=== PATIENT | male | born 1945 | race Caucasian/White ===

== ENCOUNTER 2016-03-02 08:58 | Emergency (ER) | payer OTHER ==
[~2016-03-02] VITALS: Ht 172.7 cm; Wt 90.7 kg
[~2016-03-02 08:58] MED LIST: BACTROBAN OINT.15 GM TOP; NORCO 5-325 TA1 EACH PO
[2016-03-02 10:29] LABS: ABSOLUTE BASOPHIL COUNT 0 /CUMM (0.0-0.2); ABSOLUTE EOSINOPHIL COUNT 0.1 /CUMM (0.0-0.7); ABSOLUTE GRANULOCYTE CT 6.3 /CUMM (1.4-6.5); ABSOLUTE LYMPH COUNT 0.3 /CUMM (1.2-3.4); ABSOLUTE MONOCYTE COUNT 0.7 /CUMM (0.10-0.60); BASOPHIL % 0.2 % (0.0-2.0); GRANULOCYTE % 85.1 % (42.2-75.2); HEMATOCRIT 36.9 % (42-52); MEAN CORPUSCULAR HGB 29.1 PG (27.0-31.0); MEAN CORPUSCULAR HGB CONC 33.8 G/DL (33.0-37.0); MEAN CORPUSCULAR VOLUME 85.9 FL (80.0-94.0); MEAN PLATELET VOLUME 8.3 FL (7.4-10.4); PLATELET COUNT 184 /CUMM (130-400); RBC DISTRIBUTION WIDTH 14.1 % (11.5-14.5); WHITE BLOOD CELL COUNT 7.4 /CUMM (4.8-10.8)
--- NOTE | 2016-03-02 10:46 | RADIOLOGY REPORT ---
EXAMINATION: XR CHEST CLINICAL INFORMATION: Evaluate for pneumonia COMPARISON: None. TECHNIQUE: PA and lateral views of the chest were obtained. FINDINGS: The cardiac silhouette is enlarged. There are coils seen projecting over the left atrial region. The thoracic aorta appears tortuous. Hilar and mediastinal contours are otherwise unremarkable. There is a dense 7 mm left lower lobe nodule probably representing a granuloma. There is question of a right base nodule measuring 5 mm. The lungs are otherwise clear. There is no pleural effusion. There are degenerative changes of the spine. There are median sternotomy wires. IMPRESSION: Enlarged cardiac silhouette. Tortuous thoracic aorta. Pulmonary nodules. No evidence of pneumonia.
--- NOTE | 2016-03-02 10:52 | ED INFLUENZA/URI COMPLAINT ---
History of Present Illness General Chief Complaint: General Adult Stated Complaint: N/V DIZZINESS Source: patient, family Exam Limitations: no limitations Vital Signs & Intake/Output Vital Signs & Intake/Output Vital Signs Date Time Temp Pulse Resp B/P Pulse O2 O2 Flow FiO2 Ox Delivery Rate 03/02 1207 98.7 82 12 121/62 97 Room Air 03/02 1107 93 03/02 1019 100.9 03/02 0900 99.5 89 18 148/83 95 Room Air Allergies Coded Allergies: NO KNOWN ALLERGIES (11/03/11) Reconcile Medications Albuterol Sulfate 2.5 MG/3 ML (0.083 %) VIAL.NEB 1 Vial INH/CADEN Q4P PRN WHEEZING Prednisone 20 MG TABLET 1 TAB PO AD WHEEZING 3 TABS PO DAY 1-3 2 TABS PO DAY 4-6 1 TAB PO DAY 7-9 Triage Note: PT STATES HE HAS BEEN FEELING DIZZY AND HAS HX OF VERTIGO. PT STATES HE VOMITED IN THE PARKING LOT AND HAS NOT STRENGTH. Triage Nurses Notes Reviewed? yes HPI: 70-year-old male was not feeling well for the last 2 days had intermittent dizziness and chills, tactile fever cough congestion with green productive sputum and mild dyspnea on exertion. He has had poor appetite and generalized malaise. He has been on cefadroxil for the last 8 days for strep pharyngitis, he has 3 tablets left. His notes that he has been wheezing at nighttime. He has history of vertigo which is exacerbated by his current illness, felt dizzy earlier this morning and vomited 1. He denies any chest pain or any shortness of breath, denies any palpitations. (ALEJANDRA LONG) Past History Travel History Traveled to [place] past 21 day No Medical History Any Pertinent Medical History? see below for history Neurological: NONE Cardiovascular: hyperlipidemia Respiratory: asthma Gastrointestinal: diverticulitis Hepatic: NONE Renal: NONE Musculoskeletal: NONE Psychiatric: NONE Endocrine: NONE Blood Disorders: NONE Cancer(s): NONE SENIOR IT SPECIALIST/Reproductive: NONE Surgical History Surgical History: OPEN HEART L KNEE BACK Psychosocial History What is your primary language French Tobacco Use: Quit >30 days ago ETOH Use: occasional use Illicit Drug Use: denies illicit drug use Family History Hx Contributory? No (ALEJANDRA LONG) Review of Systems Review of Systems Constitutional: Reports: see HPI. EENTM: Reports: no symptoms. Respiratory: Reports: see HPI. Cardiovascular: Reports: see HPI. GI: Reports: no symptoms. Genitourinary: Reports: no symptoms. Musculoskeletal: Reports: no symptoms. Skin: Reports: no symptoms. Neurological/Psychological: Reports: no symptoms. Hematologic/Endocrine: Reports: no symptoms. Immunologic/Allergic: Reports: no symptoms. All Other Systems: Reviewed and Negative (ALEJANDRA LONG) Physical Exam Physical Exam General Appearance: well developed/nourished Ears, Nose, Throat: moist mucous membrane, nasal congestion, nasal drainage Comments: Well-developed well-nourished no apparent distress. HEENT: Atraumatic, extraocular motion intact Neck: Supple, no lymphadenopathy Back: Nontender Respiratory: No respiratory distress. Positive rhonchi bilateral mid to lower lungs, mild to moderate wheezing Heart: Regular rate rhythm no murmur Abdomen, soft nontender nondistended Extremities: No edema, full range of motion Neuro: Alert and oriented x3 Psych: Mood affect normal, normal memory normal judgment. Skin: Warm and dry, no rash on exposed skin Core Measures Severe Sepsis Present: No Septic Shock Present: No (ALEJANDRA LONG) Progress Differential Diagnosis: influenza, meningitis, neutropenia, otitis, pneumonia, pharyngitis, sinusitis Plan of Care: Orders Procedure Date/time Status LACTIC ACID 03/02 1235 Active Add-on Test (ER Only) 03/02 1047 Active TROPONIN LEVEL 03/02 1000 Complete Saline Lock 03/02 09 Active RAPID VIRAL INFLUENZA A 03/02 0935 Complete BLOOD CULTURE 03/02 0935 Active LACTIC ACID 03/02 0935 Complete COMPREHENSIVE METABOLIC PANEL 03/02 0935 Complete CBC WITHOUT DIFFERENTIAL 03/02 0935 Complete EKG 03/02 0935 Active Laboratory Tests 03/02/16 1000: Anion Gap 12, Estimated GFR > 60, BUN/Creatinine Ratio 11.3, Glucose 124 H, Lactic Acid 1.0, Calcium 9.6, Total Bilirubin 0.7, AST 23, ALT 44, Alkaline Phosphatase 66, Troponin I < 0.01, Total Protein 7.0, Albumin 4.1, Globulin 2.9, Albumin/Globulin Ratio 1.4, CBC w Diff MAN DIFF ORDERED, RBC 4.30 L, MCV 85.9, MCH 29.1, RDW 14.1, MPV 8.3, Gran % 85.1 H, Lymphocytes % 4.5 L, Monocytes % 9.2, Eosinophils % 1.0, Basophils % 0.2, Absolute Granulocytes 6.3, Segmented Neutrophils 80 H, Band Neutrophils 7 H, Absolute Lymphocytes 0.3 L, Lymphocytes 3 L, Monocytes 9, Absolute Monocytes 0.7 H, Eosinophils 1, Absolute Eosinophils 0.1, Absolute Basophils 0, Platelet Estimate VERIFIED BY SMEAR, Normocytic RBCs VERIFIED, Normochromic RBCs VERIFIED, PUBS MCHC 33.8 Microbiology 03/02 1053 BLOOD: Blood Culture - RECD 03/02 1000 BLOOD: Blood Culture - RECD Diagnostic Imaging: Viewed by Me: Radiology Read. Discussed w/RAD: Radiology Read. CXR Impression: PATIENT: ELLIOTT ZHU PRESENT AGE: 70 PATIENT ACCOUNT NO: [id number] : 44 LOCATION: [facility] ORDERING PHYSICIAN: ALEJANDRA GILMORE SERVICE DATE: 03/02/16 EXAM TYPE: RAD - XRY-CHEST XRAY, PA AND LATERAL EXAMINATION: XR CHEST CLINICAL INFORMATION: Evaluate for pneumonia COMPARISON: None. TECHNIQUE: PA and lateral views of the chest were obtained. FINDINGS: The cardiac silhouette is enlarged. There are coils seen projecting over the left atrial region. The thoracic aorta appears tortuous. Hilar and mediastinal contours are otherwise unremarkable. There is a dense 7 mm left lower lobe nodule probably representing a granuloma. There is question of a right base nodule measuring 5 mm. The lungs are otherwise clear. There is no pleural effusion. There are degenerative changes of the spine. There are median sternotomy wires. IMPRESSION: Enlarged cardiac silhouette. Tortuous thoracic aorta. Pulmonary nodules. No evidence of pneumonia. DICTATED BY: JAMES EMMANUEL MD DATE/TIME DICTATED:03/02/161036 CARBONIZER TESTER:VENECIA DATE/ TIME TRANSCRIBED:03/02/161036 Initial ED EKG: NSR, rate (80), ST depression (anterior lateral leads) Prior EKG: changed (st dep is worse than 2004) Rhythm Strip: normal sinus rhythm Comments: IV fluids given, 4 mg of IV Zofran, DuoNeb treatment given, and reevaluation patient is feeling much better. His workup is largely unremarkable, he does have mild bandemia however his chest x-ray is clear, his exam is most consistent with sinusitis/bronchitis especially with the nasal congestion, dizziness and wheezing and rhonchi. He had significant relief with the nebulizer treatment and he has been on antibiotics for the last 8+ days, Ceftin which should cover most community acquired pneumonias. He likely has developed a viral bronchitis, we'll place him on steroids, nebulizer treatments and recommend following up with primary care doctor or return here with worsening symptoms. Discussed with Dr. salazar (ALEJANDRA LONG) Departure Departure Disposition: HOME OR SELF CARE Condition: Stable Clinical Impression Primary Impression: Bronchitis Referrals: SHOBHA SOTO,KATHRYN THOMAS (PCP/Family) Referred to [facility] as new patient No Additional Instructions: Use the albuterol nebulizer for your shortness of breath wheezing and congestion Start taking prednisone as directed Use lsvo-nej-rokforo multisystem cold medication as needed. Motrin and Tylenol as needed for fever. Drink plenty of fluids. Return or follow-up with your doctor if not better in the next 3-5 days or if you're having continued worsening fevers, nausea, vomiting, shortness of breath, abdominal pain, difficulty swallowing or drinking or worsening flulike illness. Departure Forms: Customer Survey General Discharge Information Prescriptions: Current Visit Scripts Prednisone 1 TAB PO AD #18 TAB 3 TABS PO DAY 1-3 2 TABS PO DAY 4-6 1 TAB PO DAY 7-9 Albuterol Sulfate 1 Vial INH/CADEN Q4P PRN WHEEZING #50 Vial (ALEJANDRA LONG) PA/TRANSMISSION LINE ENGINEER Co-Sign Statement Statement: ED Attending supervision documentation- [X] I saw and evaluated the patient. I have also reviewed all the pertinent lab results and diagnostic results. I agree with the findings and the plan of care as documented in the PA's/TRANSMISSION LINE ENGINEER's documentation. [X] I have reviewed the ED Record and agree with the PA's/TRANSMISSION LINE ENGINEER's documentation. [] Additions or exceptions (if any) to the PAs/TRANSMISSION LINE ENGINEER's note and plan are summarized below: [] (JONATHAN SOTO,LUANN)
[2016-03-02 12:07] VITALS: BP 121/62
[2016-03-02] MEDS ORDERED: PREDNISONE20 M1 PO (12:21)
[2016-03-02] MEDS ORDERED: ALBUTEROL2.5 MG/3 M INH/SOL (12:21)
== END 2016-03-02 13:08 ==
LOC: ERH 08:58
PROVIDERS: Physician Assistant Surgical
DX: J40 Bronchitis, not specified as acute or chronic (principal); R42 Dizziness and giddiness; R05 Cough; Z87.891 Personal history of nicotine dependence
CPT/HCPCS: 1263; 87040; 87804; 87804-59; 93005; 93010; 96374; J2405

== ENCOUNTER 2017-03-13 14:03 | Inpatient (IN) | payer OTHER ==
[~2017-03-13] VITALS: Ht 172.7 cm; Wt 87.5 kg
[~2017-03-13 14:03] MED LIST changes: +ALBUTEROL2.5 MG/3 M INH/SOL; +PREDNISONE20 M1 PO
[2017-03-13] MEDS ORDERED: ACYCLOVIR800 M1 PO (14:28)
[2017-03-13] MEDS ORDERED: AMLODIPINE BESYL5 M1 PO (14:28)
[2017-03-13] MEDS ORDERED: ATORVASTATIN CA40 M1 PO (14:29)
[2017-03-13] MEDS ORDERED: OMEPRAZOLE40 M1 PO (14:30)
[2017-03-13] MEDS ORDERED: LEVOTHYROXINE200 MC1 PO (14:30)
[2017-03-13] MEDS ORDERED: PROAIR HFA8.5 GM INH (14:31)
[2017-03-13] MEDS ORDERED: MECLIZINE HCL25 MG PO (14:31)
[2017-03-13] MEDS ORDERED: DIAZEPAM5 M1 PO (14:32)
[2017-03-13] MEDS ORDERED: SYMBICORT 16010.2 GM INH (14:33)
[2017-03-13] MEDS ORDERED: ASPIRIN81 M4 PO (14:33)
--- NOTE | 2017-03-13 14:41 | ED GI/GU/ABDOMINAL COMPLAINT ---
History of Present Illness General Chief Complaint: Nausea, Vomiting, Diarrhea Stated Complaint: NVD Source: patient Exam Limitations: no limitations Vital Signs & Intake/Output Vital Signs & Intake/Output Vital Signs Date Time Temp Pulse Resp B/P B/P Pulse O2 O2 Flow FiO2 Mean Ox Delivery Rate 03/13 1928 98.9 91 19 138/91 98 Room Air 03/13 1856 Room Air 03/13 1723 99.8 88 19 148/82 97 Room Air 03/13 1428 Room Air 03/13 1412 100.5 93 18 155/95 96 Room Air Allergies Coded Allergies: NO KNOWN ALLERGIES (11/03/11) Triage Note: PT BIBA FROM HOME WITH C/O N/V/D THAT STARTED THIS AM. PER PT, HE WAS CONCERNED BECAUSE HIS WAS RECENTLY DC FROM [place] AFTER DX WITH "STOMACH PROBLEMS". PER PT, HE HAS BEEN UNABLE TO KEEP ANYTHING DOWN SINCE AWAKENING. ARRIVES A&O, VSS. DENIES SX BEYOND GI. Triage Nurses Notes Reviewed? yes Onset: Abrupt Duration: day(s): (2), constant, continues in ED Timing: recent history Location: generalized abdomen Radiation: no radiation No Modifying Factors: none HPI: 71-year-old male comes into the emergency room with complaints of dizziness nausea vomiting and diarrhea. Symptoms began yesterday and got progressively worse. Patient has been unable to keep any oral liquids down at home. He denies any chest pain or shortness of breath. Denies any blood in his stool. His was sick with similar symptoms. (Simone GILMORE,Andres) Reconcile Medications Acyclovir 800 MG TABLET 1 TAB PO DAILY SHINGLES (Reported) Albuterol Sulfate (Proair Hfa) 90 MCG HFA.AER.AD 2 PUF INH Q4-6 PRN PRN SHORTNESS OF BREATH (Reported) Amlodipine Besylate 5 MG TABLET 1 TAB PO DAILY CHOLESTEROL (Reported) Aspirin (Aspirin*) 81 MG TAB.CHEW 1 TAB PO DAILY HEART HEALTH (Reported) Budesonide/Formoterol Fumarate (Symbicort 160-4.5 Mcg Inhaler) 160 MCG-4.5 MCG/ ACTUATION HFA.AER.AD 2 PUF INH BID PRN SHORTNESS OF BREATH (Reported) Diazepam 5 MG TABLET 1 TAB PO BIDP PRN UNKNOWN (Reported) Levothyroxine Sodium 200 MCG TABLET 1 TAB PO DAILY AC THYROID (Reported) Meclizine HCl 25 MG TABLET 1 TAB PO TIDPRN PRN VERTIGO (Reported) Omeprazole 40 MG CAPSULE.DR 1 CAP PO DAILY GI (Reported) (Marian SOTO,Mike Gentile) Past History Travel History Traveled to [place] past 21 day No Medical History Any Pertinent Medical History? 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 No (Andres Fraser) Review of Systems Review of Systems Constitutional: Reports: see HPI. EENTM: Reports: no symptoms. Respiratory: Reports: no symptoms. Cardiovascular: Reports: see HPI. GI: Reports: see HPI. Genitourinary: Reports: no symptoms. Musculoskeletal: Reports: no symptoms. Skin: Reports: no symptoms. Neurological/Psychological: Reports: no symptoms. Hematologic/Endocrine: Reports: no symptoms. Immunologic/Allergic: Reports: no symptoms. All Other Systems: Reviewed and Negative (Andres Fraser) Physical Exam Physical Exam General Appearance: well developed/nourished, alert, awake, mild distress Head: atraumatic, normal appearance, active bleeding Eyes: Bilateral: normal appearance. Ears, Nose, Throat, Mouth: hearing grossly normal, moist mucous membrane Neck: normal inspection Respiratory: no respiratory distress Gastrointestinal: soft, non-tender, NO GUARDING, NO REBOUND TENDERNESS Back: normal inspection Extremities: normal range of motion Neurologic/Psych: awake, alert, oriented x 3 Skin: intact, normal color Core Measures ACS in differential dx? No Sepsis Present: No Sepsis Focused Exam Completed? No (Andres Fraser) Progress Differential Diagnosis: appendicitis, bowel obstruction, cholecystitis, diverticulitis, ischemic bowel, pancreatitis, PUD/GERD, SBO, UTI/pyelo Plan of Care: Orders Procedure Date/time Status Clear Liquid Diet 03/13 D Active LACTIC ACID 03/13 1716 Complete RAPID VIRAL INFLUENZA A 03/13 1442 Complete TROPONIN LEVEL 03/13 1416 Complete LIPASE 03/13 1416 Complete LACTIC ACID 03/13 1416 Complete COMPREHENSIVE METABOLIC PANEL 03/13 1416 Complete CBC WITHOUT DIFFERENTIAL 03/13 1416 Complete AMYLASE 03/13 1416 Complete EKG 03/13 1416 Active Laboratory Tests 03/13/17 1505: Anion Gap 16, Estimated GFR > 60, BUN/Creatinine Ratio 30.0 H, Glucose 126 H, Lactic Acid 2.6 H, Calcium 9.8, Total Bilirubin 0.7, AST 21, ALT 32, Alkaline Phosphatase 73, Troponin I < 0.01, Total Protein 7.3, Albumin 4.5, Globulin 2.8, Albumin/Globulin Ratio 1.6, Amylase 200 H, Lipase 529 H, CBC w Diff NO MAN DIFF REQ, RBC 5.11, MCV 88.0, MCH 29.6, RDW 13.8, MPV 8.8, Gran % 79.6 H, Lymphocytes % 7.8 L, Monocytes % 7.7, Eosinophils % 4.7, Basophils % 0.2, Absolute Granulocytes 7.3 H, Absolute Lymphocytes 0.7 L, Absolute Monocytes 0.7 H, Absolute Eosinophils 0.4, Absolute Basophils 0, PUBS MCHC 33.6 03/13/17 1024: Lactic Acid 1.9 Microbiology 03/13 1505 NASOPHARYN: Influenza Virus A & B Rapid Smear - COMP Diagnostic Imaging: Viewed by Me: CT Scan. Discussed w/RAD: CT Scan. Radiology Impression: PATIENT: ELLIOTT ZHU PRESENT AGE: 71 PATIENT ACCOUNT NO: [id number] : 44 LOCATION: [facility] ORDERING PHYSICIAN: Andres GILMORE SERVICE DATE: 03/13/17 EXAM TYPE : CAT - CT ABD & PELVIS W/O IV CONTRAS EXAMINATION: CT ABDOMEN AND PELVIS WITHOUT CONTRAST CLINICAL INFORMATION: Abdominal pain. Vomiting. COMPARISON: None TECHNIQUE: Multidetector volumetric imaging was performed from the superior aspect of the liver through the pubic symphysis. Sagittal and coronal reformatted images were obtained on the technologist's workstation. DLP: 442.91 mGy-cm FINDINGS: LUNG BASES: The visualized lung bases are unremarkable. Status post median sternotomy. LIVER, GALLBLADDER, AND BILIARY TREE: Multiple hepatic cysts. No suspicious liver lesions. No intrahepatic bile duct dilatation. The gallbladder is unremarkable with no evidence of radiopaque gallstones, gallbladder wall thickening, or obvious pericholecystic inflammatory changes. PANCREAS: Unremarkable. SPLEEN: There are a few small calcified granuloma within the spleen. ADRENAL GLANDS: Unremarkable. KIDNEYS AND URETERS: 1.6 cm cortical cyst lower pole left kidney. No renal or ureteral calculus. No hydronephrosis. BLADDER: Unremarkable. GASTROINTESTINAL TRACT: The small bowel loops are little prominent in size and fluid-filled but there is no transition point. No evidence for an obstructed bowel. There is diverticulosis of the colon. The diverticula are most numerous at the transverse colon and descending colon but seen throughout the colon. No acute change. No bowel wall thickening or edema. Moderate amount of scattered stool in the colon. The appendix is normal. ABDOMINAL WALL: No significant hernia is appreciated. LYMPH NODES: Normal. VASCULAR: Atherosclerotic vascular wall calcifications of aorta and iliac vessels without aneurysm. PELVIC VISCERA: Unremarkable. OSSEOUS STRUCTURES: Degenerative spondylosis spine with multilevel endplate spurring and facet joint arthrosis. IMPRESSION: No acute abnormality CT scan abdomen and pelvis. DICTATED BY: Thony Matthew MD DATE/TIME DICTATED:03/13/171842 FINANCIAL ASSISTANT:VENECIA DATE/TIME TRANSCRIBED:03/13/171842 CONFIDENTIAL, DO NOT COPY WITHOUT APPROPRIATE AUTHORIZATION. <Electronically signed in Other Vendor System> SIGNED BY: Thony Matthew MD 03/13/171851 Initial ED EKG: normal sinus rhythm, rate (82) (Andres Fraser) Departure Departure Disposition: STILL A PATIENT Condition: Stable Clinical Impression Primary Impression: Gastroenteritis Secondary Impressions: Dehydration, Dizziness, Elevated amylase and lipase Referrals: Charbel SOTO,Benigno Dunham (PCP/Family) Departure Forms: Customer Survey General Discharge Information Observation Note Spoke With: Alli SOTO,[facility] Physician Advisor Notified: MIKE NEWBY DO Place Patient In: Non-ED OBS Care Area Rationale for Observation: My rational for observation is as follows . Patient will require gentle IV hydration. IV in time medics. Repeat labs. Patient is still symptomatic despite fluids and nausea meds. He feels dizzy. Medically not safe for discharge. (Andres Fraser) PA/DATASTAGE DEVELOPER Co-Sign Statement Statement: ED Attending supervision documentation- [X] I saw and evaluated the patient. I have also reviewed all the pertinent lab results and diagnostic results. I agree with the findings and the plan of care as documented in the PA's/DATASTAGE DEVELOPER's documentation. Patient presents for evaluation of vomiting. Patient's has been ill with similar symptoms recently. Physical examination reveals somewhat tired-appearing gentleman with a benign abdominal examination. [] I have reviewed the ED Record and agree with the PA's/DATASTAGE DEVELOPER's documentation. [] Additions or exceptions (if any) to the PAs/DATASTAGE DEVELOPER's note and plan are summarized below: [] (Marian SOTO,Mike Gentile)
[2017-03-13 15:18] LABS: ABSOLUTE BASOPHIL COUNT 0 /CUMM (0.0-0.2); ABSOLUTE EOSINOPHIL COUNT 0.4 /CUMM (0.0-0.7); ABSOLUTE GRANULOCYTE CT 7.3 /CUMM (1.4-6.5); ABSOLUTE LYMPH COUNT 0.7 /CUMM (1.2-3.4); ABSOLUTE MONOCYTE COUNT 0.7 /CUMM (0.10-0.60); BASOPHIL % 0.2 % (0.0-2.0); EOSINOPHIL % 4.7 % (0-5); GRANULOCYTE % 79.6 % (42.2-75.2); MEAN CORPUSCULAR HGB 29.6 PG (27.0-31.0); MEAN CORPUSCULAR HGB CONC 33.6 G/DL (33.0-37.0); MEAN PLATELET VOLUME 8.8 FL (7.4-10.4); PLATELET COUNT 259 /CUMM (130-400); RBC DISTRIBUTION WIDTH 13.8 % (11.5-14.5); RED BLOOD CELL CT 5.11 /CUMM (4.70-6.10); WHITE BLOOD CELL COUNT 9.2 /CUMM (4.8-10.8)
--- NOTE | 2017-03-13 18:52 | CT SCAN REPORT ---
EXAMINATION: CT ABDOMEN AND PELVIS WITHOUT CONTRAST CLINICAL INFORMATION: Abdominal pain. Vomiting. COMPARISON: None TECHNIQUE: Multidetector volumetric imaging was performed from the superior aspect of the liver through the pubic symphysis. Sagittal and coronal reformatted images were obtained on the technologist's workstation. DLP: 442.91 mGy-cm FINDINGS: LUNG BASES: The visualized lung bases are unremarkable. Status post median sternotomy. LIVER, GALLBLADDER, AND BILIARY TREE: Multiple hepatic cysts. No suspicious liver lesions. No intrahepatic bile duct dilatation. The gallbladder is unremarkable with no evidence of radiopaque gallstones, gallbladder wall thickening, or obvious pericholecystic inflammatory changes. PANCREAS: Unremarkable. SPLEEN: There are a few small calcified granuloma within the spleen. ADRENAL GLANDS: Unremarkable. KIDNEYS AND URETERS: 1.6 cm cortical cyst lower pole left kidney. No renal or ureteral calculus. No hydronephrosis. BLADDER: Unremarkable. GASTROINTESTINAL TRACT: The small bowel loops are little prominent in size and fluid-filled but there is no transition point. No evidence for an obstructed bowel. There is diverticulosis of the colon. The diverticula are most numerous at the transverse colon and descending colon but seen throughout the colon. No acute change. No bowel wall thickening or edema. Moderate amount of scattered stool in the colon. The appendix is normal. ABDOMINAL WALL: No significant hernia is appreciated. LYMPH NODES: Normal. VASCULAR: Atherosclerotic vascular wall calcifications of aorta and iliac vessels without aneurysm. PELVIC VISCERA: Unremarkable. OSSEOUS STRUCTURES: Degenerative spondylosis spine with multilevel endplate spurring and facet joint arthrosis. IMPRESSION: No acute abnormality CT scan abdomen and pelvis.
--- NOTE | 2017-03-13 19:27 | History & Physical ---
Sara Lam 03/13/171925: General Information and HPI MD Statement: I have seen and personally examined ELLIOTT NEAL and documented this H&P. The patient is a 71 year old M who presented with a patient stated chief complaint of [Nausea vomiting diarrhea]. Source of Information: patient Exam Limitations: no limitations History of Present Illness: Mr. 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 Per patient, he went to a restaurant for dinner last night with pasta and cheese, and later felt generalized discomfort overnight. This morning, he ate some oatmeal and then started vomiting + diarrhea > 10 times, non-bloody diarrhea and vomitus. Patient tried to drink some gatorade but could not tolerate oral intake. He did not know if whoever had the dinner with him was sick or not. Patient denied any chest pain/SOB/Palpitation/urinary abnormality, or other skin /musculoskeletal/neurological disorders. Patient felt better during our clinical interactions and was able to drink some apple juice and had no new N/V/D prior we came in to the ER. Allergies/Medications Allergies: Coded Allergies: NO KNOWN ALLERGIES (11/03/11) Home Med list Acyclovir 800 MG TABLET 1 TAB PO DAILY SHINGLES (Reported) Albuterol Sulfate (Proair Hfa) 90 MCG HFA.AER.AD 2 PUF INH Q4-6 PRN PRN SHORTNESS OF BREATH (Reported) Amlodipine Besylate 5 MG TABLET 1 TAB PO DAILY CHOLESTEROL (Reported) Aspirin (Aspirin*) 81 MG TAB.CHEW 1 TAB PO DAILY HEART HEALTH (Reported) Atorvastatin Calcium 40 MG TABLET 1 TAB PO QPM CHOLESTEROL (Reported) Budesonide/Formoterol Fumarate (Symbicort 160-4.5 Mcg Inhaler) 160 MCG-4.5 MCG/ ACTUATION HFA.AER.AD 2 PUF INH BID PRN SHORTNESS OF BREATH (Reported) Diazepam 5 MG TABLET 1 TAB PO BIDP PRN UNKNOWN (Reported) Levothyroxine Sodium 200 MCG TABLET 1 TAB PO DAILY AC THYROID (Reported) Meclizine HCl 25 MG TABLET 1 TAB PO TIDPRN PRN VERTIGO (Reported) Omeprazole 40 MG CAPSULE. 1 CAP PO DAILY GI (Reported) Past History Travel History Traveled to [place] past 21 day No Medical History Neurological: vertigo Cardiovascular: hyperlipidemia Respiratory: asthma Gastrointestinal: diverticulitis Hepatic: NONE Renal: NONE Musculoskeletal: NONE Psychiatric: NONE Endocrine: NONE Blood Disorders: NONE Cancer(s): NONE CLINICAL PARTNER/Reproductive: NONE Surgical History Surgical History: OPEN HEART L KNEE BACK Past Family/Social History Psychosocial History Smoking Status: Former Smoker ETOH Use: occasional use Illicit Drug Use: denies illicit drug use Review of Systems Review of Systems Constitutional: Reports: see HPI. Exam & Diagnostic Data Last 24 Hrs of Vital Signs/I&O Vital Signs Date Time Temp Pulse Resp B/P B/P Pulse O2 O2 Flow FiO2 Mean Ox Delivery Rate 03/13 2143 98.4 83 19 130/80 97 Room Air 03/13 2030 97.0 86 16 127/71 96 Room Air 03/13 1928 98.9 91 19 138/91 98 Room Air 03/13 1856 Room Air 03/13 1723 99.8 88 19 148/82 97 Room Air 03/13 1428 Room Air 03/13 1412 100.5 93 18 155/95 96 Room Air Intake & Output 03/14 0800 03/14 0000 03/13 1600 Intake Total 1000 Output Total Balance 1000 Intake, IV 1000 Patient 87.543 kg Weight Physical Exam General Appearance Alert, Oriented X3, Cooperative, No Acute Distress Skin No Breakdown, No Significant Lesion Skin Temp/Moisture Exam: Warm/Dry HEENT Atraumatic, PERRLA Neck Supple Cardiovascular Regular Rate Lungs Clear to Auscultation, Normal Air Movement Abdomen Normal Bowel Sounds, Soft, No Tenderness Neurological Normal Speech, Strength at 5/5 X4 Ext Extremities No Edema, Normal Pulses Last 24 Hrs of Labs/Alberto: Laboratory Tests 03/13/17 1505: Anion Gap 16, Estimated GFR > 60, BUN/Creatinine Ratio 30.0 H, Glucose 126 H, Lactic Acid 2.6 H, Calcium 9.8, Total Bilirubin 0.7, AST 21, ALT 32, Alkaline Phosphatase 73, Troponin I < 0.01, Total Protein 7.3, Albumin 4.5, Globulin 2.8, Albumin/Globulin Ratio 1.6, Amylase 200 H, Lipase 529 H, CBC w Diff NO MAN DIFF REQ, RBC 5.11, MCV 88.0, MCH 29.6, RDW 13.8, MPV 8.8, Gran % 79.6 H, Lymphocytes % 7.8 L, Monocytes % 7.7, Eosinophils % 4.7, Basophils % 0.2, Absolute Granulocytes 7.3 H, Absolute Lymphocytes 0.7 L, Absolute Monocytes 0.7 H, Absolute Eosinophils 0.4, Absolute Basophils 0, PUBS MCHC 33.6 03/13/17 1024: Lactic Acid 1.9 Microbiology 03/13 1505 NASOPHARYN: Influenza Virus A & B Rapid Smear - COMP Assessment/Plan Assessment: Mr. 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 Per patient, he went to a restaurant for dinner last night with pasta and cheese, and later felt generalized discomfort overnight. This morning, he ate some oatmeal and then started vomiting + diarrhea > 10 times, non-bloody diarrhea and vomitus. Patient tried to drink some gatorade but could not tolerate oral intake. Patient denied any chest pain/SOB/Palpitation/urinary abnormality, or other skin /musculoskeletal/neurological disorders. ER Course: Vital signs stable, afebrile, BP 130/80, 97%RA Labs/imaging/EKG/interventions -CBC: WNL unremarkable -BMP: Electrolytes unremarkable, Glucose 126, Lactic Acid 2.6, Amylase/Lipase 200/529 -Ab CT revealed no acute abnormality CT scan abdomen and pelvis. -EKG: Normal sinus rhythm without significant ST-T abnormalities. -Interventions in ER:Zofran + Protonix Assessment: Mr. 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 As patient remained afebrile without leukocytosis, and watery diarrhea without blood, and self- resolving symptoms within 24hours, patient's clinical picture resembled viral gastroenteritis unless proven otherwise. Patient did not appear to be dehydrated on PE or on lab. patient denied any PMH of pancreatitis. Problem list #N/V/D 2/2 viral gastroenteritis #Elevated Amylase/Lipase, reactive? #Hx of vertigo on Meclizine PRN, HTN, HLD, Asthma Plan - Placed to Gen med Observation - As patient tolerated liquids, will not start IV fluids - Zofran PRN for any N/V, IV protonix -> PO in the AM - Continued home meds of Amlodipine 5mg daily, acyclovir, levothyroxine, meclizine, symbicort/proair and aspirin - Monitor BEP in the AM. If asymptomatic, could discharge home. - Advance diet as tolerated. DVT prophylaxis Lovenox + ALPS Clear Liquid Full Code As Ranked By This Provider Problem List: 1. Dehydration 2. Elevated amylase and lipase 3. Gastroenteritis 4. Dizziness Core Measures/Misc (11/16) Acute Coronary Syndrome ACS Diagnosis: No Congestive Heart Failure Congestive Heart Failure Diagnosis No Cerebrovascular Accident CVA/TIA Diagnosis: No VTE (View Protocol) VTE Risk Factors Age>40 No Mechanical VTE Prophylaxis d/t N/A MechProphylax Ordered No VTE Pharm Prophylaxis d/t NA PharmProphylax ordered Sepsis (View protocol) Sepsis Present: No [place] 03/14/17 0332: Resident Review Statement Resident Statement: examined this patient, discussed with creative services intern, agreed with creative services intern, discussed with family, reviewed EMR data (avail), discussed with nursing , discussed with case mgmt, reviewed images, amended to note Alli SOTO, [facility] 03/14/17 0545: Attending MD Review Statement Attending Statement Attending MD Statement: examined this patient, discuss w/resident/PA/CHAIRMAN & CHIEF EXECUTIVE OFFICER, agreed w/resident/PA/CHAIRMAN & CHIEF EXECUTIVE OFFICER, discussed with family, reviewed images, amended to note Attending Assessment/Plan: 71 yo M with h/o vertigo, HTN, rosacea, herpes zoster, asthma, diverticulitis s/ p partial colectomy, 'irregular heart beat' and open heart surgery for an extra coronary artery, is brought in for evaluation of 1 day h/o acute onset of nausea , vomiting and nonbloody diarrhea after eating 'veal parmesan' at a post- dinner the night prior. He feels weak and is unable to keep anything down. C/o indigestion. He denies abdominal pain or cramps, no fever or chills. He had more than 10 episodes of vomiting and diarrhea at home. He was concerned as his was recently discharged after being treated for gastroenteritis. Vitals: Tmax 100.5, HR 90's, BP 130/80, sats 97% RA. Exam: AAO, weak but not lethargic, ill-appearing, dry mucous membranes, Neck supple, Chest clear, Heart S1S2 regular, systolic murmur+, Abd soft, NT, BS+, LE : no edema. Labs: no leukocytosis, BUN 21, elevated BUN/ creat ratio, lactic acid 2.6, trop neg, lipase 529. CT abd/pelvis: no acute abnormality. EKG: SR, diffuse TWI in inferior leads and V3-6 (old), no acute changes. Assessment and plan: 1. Nausea, vomiting, diarrhea likely viral gastroenteritis 2. Poor oral intake 3. Dehydration with elevated BUN/ creatinine ratio 4. Elevated lactic acid 5. Elevated amylase/ lipase is likely reactive from gastroenteritis - 23 hour observation on general medicine - Gentle IV hydration - IV PPI --> PO in AM - Anti emetics as needed - Clear liquid diet, advance as tolerated - If persistent diarrhea, consider stool studies - Recheck BEP in AM, trend lactic acid - Resume home meds amlodipine, acyclovir, levothyroxine, meclizine, symbicort, proair and aspirin. - Patient is on atorvastatin but has not been taking it due to muscle cramps. - If his symptoms improve and diarrhea resolves, will advance diet in AM, and if he tolerates can plan to discharge. DVT ppx Lovenox. Full code. Observation Initial Note - I have personally examined ELLIOTT NEAL on 03/14/17 at 0545. The disposition of ELLIOTT NEAL is uncertain at this time and before a determination can be made, he requires a period of observation for the following reasons [viral gastroenteritis]
[2017-03-13 21:43] VITALS: BP 130/80
[2017-03-14 06:20] VITALS: BP 114/70
--- NOTE | 2017-03-14 06:22 | PN- Housestaff ---
See Addendum Subjective Follow-up For: #N/V/D 2/2 viral gastroenteritis #Elevated Amylase/Lipase, reactive? #Hx of vertigo on Meclizine PRN, HTN, HLD, Asthma Subjective: No overnight event. Patient was awake and felt much improved overall this morning. Review of Systems Constitutional: Reports: see HPI. Objective Last 24 Hrs of Vital Signs/I&O Vital Signs Date Time Temp Pulse Resp B/P B/P Pulse O2 O2 Flow FiO2 Mean Ox Delivery Rate 03/13 2143 98.4 83 19 130/80 97 Room Air 03/13 2030 97.0 86 16 127/71 96 Room Air 03/13 1928 98.9 91 19 138/91 98 Room Air 03/13 1856 Room Air 03/13 1723 99.8 88 19 148/82 97 Room Air 03/13 1428 Room Air 03/13 1412 100.5 93 18 155/95 96 Room Air Intake & Output 03/14 0800 03/14 0000 03/13 1600 Intake Total 1000 Output Total Balance 1000 Intake, IV 1000 Patient 87.543 kg Weight Physical Exam General Appearance: Alert, Oriented X3, Cooperative, No Acute Distress Abdomen: Normal Bowel Sounds, Soft, No Tenderness Current Medications: Current Medications Sig/Mary Ann Start time Last Medication Dose Route Stop Time Status Admin Acetaminophen 650 MG Q6P PRN 03/13 2100 AC PO Acetaminophen 1,000 MG Q6P PRN 03/13 2100 AC IV Amlodipine Besylate 5 MG DAILY 03/14 1000 AC PO Enoxaparin Sodium 40 MG DAILY 03/14 1000 AC SC Ondansetron HCl 4 MG Q8P PRN 03/13 2100 AC IV Ondansetron HCl 0 .STK-MED ONE 03/13 1653 DC .ROUTE Ondansetron HCl 4 MG ONCE ONE 03/13 1645 DC 03/13 IV 03/13 1646 1650 Ondansetron HCl 4 MG ONCE ONE 03/13 1445 DC 03/13 IV 03/13 1446 1439 Ondansetron HCl 0 .STK-MED ONE 03/13 1422 DC .ROUTE Pantoprazole Sodium 0 .STK-MED ONE 03/13 1946 DC IV Pantoprazole Sodium 40 MG ONCE ONE 03/13 1945 DC 03/13 IV 03/13 1945 194 Sodium Chloride 1,000 ML Q13H 03/14 0545 AC 03/14 IV 0556 Last 24 Hrs of Lab/Alberto Results Last 24 Hrs of Labs/Mics: Laboratory Tests 03/13/17 1505: Anion Gap 16, Estimated GFR > 60, BUN/Creatinine Ratio 30.0 H, Glucose 126 H, Lactic Acid 2.6 H, Calcium 9.8, Total Bilirubin 0.7, AST 21, ALT 32, Alkaline Phosphatase 73, Troponin I < 0.01, Total Protein 7.3, Albumin 4.5, Globulin 2.8, Albumin/Globulin Ratio 1.6, Amylase 200 H, Lipase 529 H, CBC w Diff NO MAN DIFF REQ, RBC 5.11, MCV 88.0, MCH 29.6, RDW 13.8, MPV 8.8, Gran % 79.6 H, Lymphocytes % 7.8 L, Monocytes % 7.7, Eosinophils % 4.7, Basophils % 0.2, Absolute Granulocytes 7.3 H, Absolute Lymphocytes 0.7 L, Absolute Monocytes 0.7 H, Absolute Eosinophils 0.4, Absolute Basophils 0, PUBS MCHC 33.6 03/13/17 1024: Lactic Acid 1.9 Microbiology 03/13 1505 NASOPHARYN: Influenza Virus A & B Rapid Smear - COMP Assessment/Plan Assessment: Mr. 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 Per patient, he went to a restaurant for dinner last night with pasta and cheese, and later felt generalized discomfort overnight. This morning, he ate some oatmeal and then started vomiting + diarrhea > 10 times, non-bloody diarrhea and vomitus. Patient tried to drink some gatorade but could not tolerate oral intake. Patient denied any chest pain/SOB/Palpitation/urinary abnormality, or other skin /musculoskeletal/neurological disorders. ER Course: Vital signs stable, afebrile, BP 130/80, 97%RA Labs/imaging/EKG/interventions -CBC: WNL unremarkable -BMP: Electrolytes unremarkable, Glucose 126, Lactic Acid 2.6, Amylase/Lipase 200/529 -Ab CT revealed no acute abnormality CT scan abdomen and pelvis. -EKG: Normal sinus rhythm without significant ST-T abnormalities. -Interventions in ER:Zofran + Protonix Assessment: Mr. 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 As patient remained afebrile without leukocytosis, and watery diarrhea without blood, and self- resolving symptoms within 24hours, patient's clinical picture resembled viral gastroenteritis unless proven otherwise. Patient did not appear to be dehydrated on PE or on lab. patient denied any PMH of pancreatitis. Problem list #N/V/D 2/2 viral gastroenteritis #Elevated Amylase/Lipase, reactive? #Lactic Acidosis #Hx of vertigo on Meclizine PRN, HTN, HLD, Asthma Plan - As patient tolerated liquids, will not start IV fluids. Advance diet as tolerated. - Lactic acid on admission 1.9, trended up to 2.6 on latest lab. Continue monitor - Zofran PRN for any N/V, IV protonix -> PO in the AM - Continued home meds of Amlodipine, acyclovir, levothyroxine, meclizine, symbicort/proair and aspirin. - Monitor BEP in the AM. If asymptomatic, could discharge home. - Advance diet as tolerated. DVT prophylaxis Lovenox + ALPS Clear Liquid Full Code Problem List: 1. Dehydration 2. Dizziness 3. Elevated amylase and lipase 4. Gastroenteritis Pain Ratin Pain Location: NA Pain Goal: Remain pain free Pain Plan: NA Tomorrow's Labs & Rationales: NA
[2017-03-14 14:07] LABS: ABSOLUTE BASOPHIL COUNT 0 /CUMM (0.0-0.2); ABSOLUTE EOSINOPHIL COUNT 0.4 /CUMM (0.0-0.7); ABSOLUTE LYMPH COUNT 1.1 /CUMM (1.2-3.4); ABSOLUTE MONOCYTE COUNT 0.8 /CUMM (0.10-0.60); BASOPHIL % 0.2 % (0.0-2.0); EOSINOPHIL % 5.5 % (0-5); GRANULOCYTE % 68.6 % (42.2-75.2); HEMATOCRIT 40.9 % (42-52); MEAN CORPUSCULAR HGB 29.1 PG (27.0-31.0); MEAN CORPUSCULAR VOLUME 88.3 FL (80.0-94.0); MEAN PLATELET VOLUME 9.1 FL (7.4-10.4); PLATELET COUNT 213 /CUMM (130-400); RBC DISTRIBUTION WIDTH 13.8 % (11.5-14.5); RED BLOOD CELL CT 4.63 /CUMM (4.70-6.10); WHITE BLOOD CELL COUNT 7.3 /CUMM (4.8-10.8)
[2017-03-14 14:41] VITALS: BP 120/70
[2017-03-14 22:36] VITALS: BP 112/70
[2017-03-15 06:55] VITALS: BP 130/70
--- NOTE | 2017-03-15 08:35 | PN- Att Addend ---
Attending Addendum Attending Brief Note Patient seen and examined. Resting comfortably and not in acute distress. Apparently yesterday after advancing his diet he vomited on 2 occasions. He has 3 bowel movements yesterday which he described as loose not watery. Denies presence of any blood. Denies abdominal pain. Vital Signs Date Time Temp Pulse Resp B/P B/P Pulse O2 O2 Flow FiO2 Mean Ox Delivery Rate 03/15 0655 97.6 64 20 130/70 94 Room Air 03/14 2236 98.7 84 20 112/70 94 Room Air 03/14 1441 97.9 72 20 120/70 98 03/14 0926 61 114/70 Gen. appearance: Well-developed, not in any distress. Heart: S1-S2 regular Lungs: Clear bilaterally Abdomen: Soft, nontender with normal bowel sounds. No distention. No right upper quadrant tenderness. Extremities: No pedal edema Skin: Intact with no rashes. Laboratory Tests 03/14/17 1245: Lactic Acid 1.7, CBC w Diff NO MAN DIFF REQ, RBC 4.63 L, MCV 88.3, MCH 29.1, RDW 13.8, MPV 9.1, Gran % 68.6, Lymphocytes % 14.5 L, Monocytes % 11.2 H, Eosinophils % 5.5 H, Basophils % 0.2, Absolute Granulocytes 5.0, Absolute Lymphocytes 1.1 L, Absolute Monocytes 0.8 H, Absolute Eosinophils 0.4, Absolute Basophils 0, PUBS MCHC 33.0 03/14/17 0853: Anion Gap 18 H, Estimated GFR > 60, BUN/Creatinine Ratio 20.0, Amylase 70, Lipase 37 LFTs are within normal limits. Amylase/lipase ratio are within normal limits. Problems: 1. Gastroenteritis; resolved. Likely viral in etiology. 2. Elevated amylase lipase; resolved. Pancreas appears unremarkable on CT abdomen. Probably reactive. 3. Low-grade fever; no leukocytosis on presentation. Remains afebrile for now. Plan: -Diet was downgraded again yesterday. Continue full liquid diet for now. If patient tolerates consider advancing later on today. -If diarrhea persists send stool for Clostridium difficile, cryptosporidium, Giardia and stool culture. -Mobilize patient as tolerated. -Due to his ongoing vomiting discharge will be held and patient converted to inpatient level of care For further monitoring.
[2017-03-15 09:33] LABS: ABSOLUTE BASOPHIL COUNT 0 /CUMM (0.0-0.2); ABSOLUTE EOSINOPHIL COUNT 0.3 /CUMM (0.0-0.7); ABSOLUTE GRANULOCYTE CT 4.4 /CUMM (1.4-6.5); ABSOLUTE LYMPH COUNT 1.1 /CUMM (1.2-3.4); ABSOLUTE MONOCYTE COUNT 0.8 /CUMM (0.10-0.60); BASOPHIL % 0.2 % (0.0-2.0); GRANULOCYTE % 65.3 % (42.2-75.2); HEMATOCRIT 37.1 % (42-52); MEAN CORPUSCULAR HGB 29.8 PG (27.0-31.0); MEAN CORPUSCULAR HGB CONC 33.9 G/DL (33.0-37.0); MEAN CORPUSCULAR VOLUME 87.9 FL (80.0-94.0); MEAN PLATELET VOLUME 8.5 FL (7.4-10.4); PLATELET COUNT 226 /CUMM (130-400); RBC DISTRIBUTION WIDTH 13.4 % (11.5-14.5); RED BLOOD CELL CT 4.22 /CUMM (4.70-6.10); WHITE BLOOD CELL COUNT 6.7 /CUMM (4.8-10.8)
[2017-03-15 15:46] VITALS: BP 110/70
[2017-03-15 22:44] VITALS: BP 102/60
[2017-03-16 06:30] VITALS: BP 122/76
--- NOTE | 2017-03-16 08:20 | PN- Housestaff ---
Sara Lam 03/16/17 0818: Subjective Follow-up For: #N/V/D 2/2 viral gastroenteritis #Elevated Amylase/Lipase, resolving #Hx of vertigo on Meclizine PRN, HTN, HLD, Asthma Subjective: No overnight event. Pt felt improved and was eating his breakfast including scrambled eggs and toasts. Denied bowel movements or other specific complaint. Review of Systems Constitutional: Reports: see HPI. Objective Last 24 Hrs of Vital Signs/I&O Vital Signs Date Time Temp Pulse Resp B/P B/P Pulse O2 O2 Flow FiO2 Mean Ox Delivery Rate 03/16 0630 98.0 59 20 122/76 96 Room Air 03/15 2244 97.8 60 20 102/60 97 Room Air 03/15 1546 97.9 66 20 110/70 97 03/15 0844 64 130/70 Intake & Output 03/16 1600 03/16 0800 03/16 0000 Intake Total 400 480 Output Total Balance 400 480 Intake, Oral 400 480 Physical Exam General Appearance: Alert, Oriented X3, Cooperative, No Acute Distress Cardiovascular: Regular Rate Lungs: Clear to Auscultation, Normal Air Movement Abdomen: Normal Bowel Sounds, Soft, No Tenderness Neurological: Normal Speech Extremities: No Edema, Normal Pulses Current Medications: Current Medications Sig/Mary Ann Start time Last Medication Dose Route Stop Time Status Admin Acetaminophen 650 MG Q6P PRN 03/13 2100 AC PO Acetaminophen 1,000 MG Q6P PRN 03/13 2100 AC IV Amlodipine Besylate 5 MG DAILY 03/14 1000 AC 03/15 PO 0844 Diazepam 5 MG BID PRN 03/14 1000 AC PO Enoxaparin Sodium 40 MG DAILY 03/14 1000 AC 03/15 SC 0844 Levothyroxine Sodium 0.2 MG DAILY AC 03/14 0700 AC 03/16 PO 0526 Meclizine HCl 25 MG DAILY PRN 03/14 0645 AC PO Omeprazole 40 MG DAILY AC 03/14 0700 AC 03/16 PO 0526 Ondansetron HCl 4 MG Q8P PRN 03/13 2100 AC 03/14 IV 1848 Last 24 Hrs of Lab/Alberto Results Last 24 Hrs of Labs/Mics: Laboratory Tests 03/15/17 0820: Anion Gap 13, Estimated GFR > 60, BUN/Creatinine Ratio 14.3, CBC w Diff NO MAN DIFF REQ, RBC 4.22 L, MCV 87.9, MCH 29.8, RDW 13.4, MPV 8.5, Gran % 65.3, Lymphocytes % 17.0 L, Monocytes % 12.5 H, Eosinophils % 5.0, Basophils % 0.2, Absolute Granulocytes 4.4, Absolute Lymphocytes 1.1 L, Absolute Monocytes 0.8 H, Absolute Eosinophils 0.3, Absolute Basophils 0, PUBS MCHC 33.9 Assessment/Plan Assessment: Mr. 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 Per patient, he went to a restaurant for dinner last night with pasta and cheese, and later felt generalized discomfort overnight. This morning, he ate some oatmeal and then started vomiting + diarrhea > 10 times, non-bloody diarrhea and vomitus. Patient tried to drink some gatorade but could not tolerate oral intake. Patient denied any chest pain/SOB/Palpitation/urinary abnormality, or other skin /musculoskeletal/neurological disorders. ER Course: Vital signs stable, afebrile, BP 130/80, 97%RA Labs/imaging/EKG/interventions -CBC: WNL unremarkable -BMP: Electrolytes unremarkable, Glucose 126, Lactic Acid 2.6, Amylase/Lipase 200/529 -Ab CT revealed no acute abnormality CT scan abdomen and pelvis. -EKG: Normal sinus rhythm without significant ST-T abnormalities. -Interventions in ER:Zofran + Protonix Assessment: Mr. 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 As patient remained afebrile without leukocytosis, and watery diarrhea without blood, and self- resolving symptoms within 24hours, patient's clinical picture resembled viral gastroenteritis unless proven otherwise. Patient did not appear to be dehydrated on PE or on lab. patient denied any PMH of pancreatitis. Problem list #N/V/D 2/2 viral gastroenteritis #Elevated Amylase/Lipase, reactive? #Lactic Acidosis #Hx of vertigo on Meclizine PRN, HTN, HLD, Asthma Plan - Patient's diet advanced to regular diet at lunch without any N/V episodes. pending discharge today. - Lactic acid on admission 1.9, trended up to 2.6 on latest lab. Continue monitor - Zofran PRN for any N/V, IV protonix -> PO in the AM - Continued home meds of Amlodipine, acyclovir, levothyroxine, meclizine, symbicort/proair and aspirin. Patient's off lipitor since he got leg cramp from it. DVT prophylaxis Lovenox + ALPS Regular diet Full Code Problem List: 1. Dehydration 2. Elevated amylase and lipase 3. Gastroenteritis Pain Ratin Pain Location: NA Pain Goal: Remain pain free Pain Plan: NA Tomorrow's Labs & Rationales: Ellie Rodriguez 03/16/17 1206: Attending MD Review Statement Attending Statement Attending MD Statement: examined this patient, discuss w/resident/PA/TANK BOTTOM ASSEMBLER, agreed w/resident/PA/TANK BOTTOM ASSEMBLER, discussed with family, reviewed EMR data (avail), discussed with nursing, discussed with case mgmt, reviewed images, amended to note Attending Assessment/Plan: Patient walking tran way today with no complaints. He had his breakfast today. Patient vital stable. afebrile. Patient can be discharged in [place] condition. Follow up with PCP at discharge.
[2017-03-16 08:34] VITALS: BP 122/76
[2017-03-16 09:22] LABS: ABSOLUTE BASOPHIL COUNT 0 /CUMM (0.0-0.2); ABSOLUTE EOSINOPHIL COUNT 0.4 /CUMM (0.0-0.7); ABSOLUTE GRANULOCYTE CT 4.1 /CUMM (1.4-6.5); ABSOLUTE LYMPH COUNT 1.6 /CUMM (1.2-3.4); ABSOLUTE MONOCYTE COUNT 0.7 /CUMM (0.10-0.60); BASOPHIL % 0.3 % (0.0-2.0); GRANULOCYTE % 59.4 % (42.2-75.2); HEMATOCRIT 38.3 % (42-52); MEAN CORPUSCULAR HGB 29.7 PG (27.0-31.0); MEAN CORPUSCULAR HGB CONC 33.7 G/DL (33.0-37.0); MEAN CORPUSCULAR VOLUME 88.2 FL (80.0-94.0); MEAN PLATELET VOLUME 8.6 FL (7.4-10.4); PLATELET COUNT 231 /CUMM (130-400); RBC DISTRIBUTION WIDTH 13.5 % (11.5-14.5); RED BLOOD CELL CT 4.34 /CUMM (4.70-6.10); WHITE BLOOD CELL COUNT 6.9 /CUMM (4.8-10.8)
--- NOTE | 2017-03-16 11:48 | Patient Discharge Instructions ---
Discharge Instructions General Discharge Information You were seen/treated for: Viral Gastroenteritis Special Instructions: - Please follow up with your primary care physician within 1-2 week of discharge. Inform your primary care physician of this admission to [facility]. - Continue your current medications per discharge instructions. - Please watch for these problems: Fever, Chills, Nausea, Vomiting, Shortness of Breath, Productive Cough, Chest Pain/Discomfort, Abdominal Pain, Active Bleeding or Bloody urine/stool. Diet Continue normal diet: Yes Activity Full Activity/No Limits: Yes Acute Coronary Syndrome Inclusion Criteria At DC or during hospital stay patient has or had the following: ACS DIAGNOSIS No Discharge Core Measures Meds if any: Prescribed or Continued at Discharge Meds if any: NOT Prescribed or Continued at Discharge Congestive Heart Failure Inclusion Criteria At MD or during hospital stay patient has or had the following: CHF DIAGNOSIS No Discharge Core Measures Meds if any: Prescribed or Continued at Discharge Meds if any: NOT Prescribed or Continued at Discharge Cerebrovascular accident Inclusion Criteria At DC or during hospital stay patient has or had the following: CVA/TIA Diagnosis No Discharge Core Measures Meds if any: Prescribed or Continued at Discharge Meds if any: NOT Prescribed or Continued at Discharge Venous thromboembolism Inclusion Criteria VTE Diagnosis No VTE Type NONE VTE Confirmed by (Test) NONE Discharge Core Measures - Per Current guidelines, there needs to be overlap - treatment for the first 5 days of Warfarin therapy. - If discharged on Warfarin prior to 5 days of - overlap therapy, the patient will need to be - assessed for post discharge needs including - *Post discharge parental anticoagulation - *Warfarin and/or parental anticoagulation education - *Follow up date to check INR post discharge At least 5 days overlap therapy as Inpatient No Meds if any: Prescribed or Continued at Discharge Note: Overlap Therapy is Warfarin and Anticoagulant Meds if any: NOT Prescribed or Continued at Discharge
--- NOTE | 2017-03-16 13:03 | Discharge Summary ---
Visit Information Visit Dates Admission Date: 03/15/17 Discharge Date: 03/16/2017 Hospital Course Course Attending Physician: Ellie Garcia MD Primary Care Physician: Charbel SOTO,Benigno Dunham Hospital Course: Mr. 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 Per patient, he went to a restaurant for dinner last night with pasta and cheese, and later felt generalized discomfort overnight. This morning, he ate some oatmeal and then started vomiting + diarrhea > 10 times, non-bloody diarrhea and vomitus. Patient tried to drink some gatorade but could not tolerate oral intake. As patient remained afebrile without leukocytosis, and watery diarrhea without blood, and self-resolving symptoms within 24hours, patient's clinical picture resembled viral gastroenteritis unless proven otherwise. Patient did not appear to be dehydrated on PE or on lab. patient denied any PMH of pancreatitis. Patient denied any chest pain/SOB/Palpitation/urinary abnormality, or other skin /musculoskeletal/neurological disorders. ER Course: Vital signs stable, afebrile, BP 130/80, 97%RA Labs/imaging/EKG/interventions -CBC: WNL unremarkable -BMP: Electrolytes unremarkable, Glucose 126, Lactic Acid 2.6, Amylase/Lipase 200/529 -Ab CT revealed no acute abnormality CT scan abdomen and pelvis. -EKG: Normal sinus rhythm without significant ST-T abnormalities. -Interventions in ER:Zofran + Protonix Problem list & Hospital Course: #N/V/D 2/2 viral gastroenteritis Upon admission, patient was started on supportive management with Zofran as needed for any Nausea/vomiting, and protonix/omeprazole for GI protection. Patient could tolerate liquids upon admission and was advised to continue oral intake of full liquid with no IV hydration. Patient gradually advanced diet to regular solid diet without more episodes of nausea/vomiting prior discharge. Patient's lactic acidosis on admission at 1.9 -> 2.6 -> 1.7 on latest lab prior discharge. #Elevated Amylase/Lipase, reactive Patient's amylase/lipase was elevated to 200/529, however no PMH of pancreatitis /imaging evidence. Patient's elevated amylase/lipase were likely reactive, and trended down to 70/37 prior discharge without abdominal pain. #Hx of vertigo on Meclizine PRN, HTN, HLD, Asthma Patient was continued home meds of Amlodipine 5mg daily, acyclovir, levothyroxine, meclizine, symbicort/proair and aspirin DVT prophylaxis Lovenox + ALPS Regular Diet Full Code Allergies: Coded Allergies: NO KNOWN ALLERGIES (11/03/11) Pertinent Lab Results: SERVICE DATE: 03/13/17-1737 EXAM TYPE: CAT - CT ABD & PELVIS W/O IV CONTRAS IMPRESSION: No acute abnormality CT scan abdomen and pelvis. Laboratory Tests 03/16 03/15 0810 0820 Chemistry Sodium (137 - 145 mmol/L) 143 141 Potassium (3.5 - 5.1 mmol/L) 3.8 3.6 Chloride (98 - 107 mmol/L) 105 104 Carbon Dioxide (22 - 30 mmol/L) 27 24 Anion Gap (5 - 16) 11 13 BUN (9 - 20 mg/dL) 11 10 Creatinine (0.7 - 1.2 mg/dL) 0.7 0.7 Estimated GFR (>60 ml/min) > 60 > 60 BUN/Creatinine Ratio (7 - 25 %) 15.7 14.3 Hematology CBC w Diff NO MAN DIFF REQ NO MAN DIFF REQ WBC (4.8 - 10.8 /CUMM) 6.9 6.7 RBC (4.70 - 6.10 /CUMM) 4.34 L 4.22 L Hgb (14.0 - 18.0 G/DL) 12.9 L 12.6 L Hct (42 - 52 %) 38.3 L 37.1 L MCV (80.0 - 94.0 FL) 88.2 87.9 MCH (27.0 - 31.0 PG) 29.7 29.8 RDW (11.5 - 14.5 %) 13.5 13.4 Plt Count (130 - 400 /CUMM) 231 226 MPV (7.4 - 10.4 FL) 8.6 8.5 Gran % (42.2 - 75.2 %) 59.4 65.3 Lymphocytes % (20.5 - 51.1 %) 23.9 17.0 L Monocytes % (1.7 - 9.3 %) 10.4 H 12.5 H Eosinophils % (0 - 5 %) 6.0 H 5.0 Basophils % (0.0 - 2.0 %) 0.3 0.2 Absolute Granulocytes (1.4 - 6.5 /CUMM) 4.1 4.4 Absolute Lymphocytes (1.2 - 3.4 /CUMM) 1.6 1.1 L Absolute Monocytes (0.10 - 0.60 /CUMM) 0.7 H 0.8 H Absolute Eosinophils (0.0 - 0.7 /CUMM) 0.4 0.3 Absolute Basophils (0.0 - 0.2 /CUMM) 0 0 PUBS MCHC (33.0 - 37.0 G/DL) 33.7 33.9 Disposition Summary Disposition Principal Diagnosis: #N/V/D 2/2 viral gastroenteritis #Elevated Amylase/Lipase, reactive #Lactic Acidosis, resolved #Hx of vertigo on Meclizine PRN, HTN, HLD, Asthma Additional Diagnosis: as above Discharge Disposition: home or self care Discharge Instructions General Discharge Information Code Status: Full Code Patient's Diet: Regular Diet Patient's Activity: As tolerated Follow-Up Instructions/Appts: - Please follow up with your primary care physician within 1-2 week of discharge. Inform your primary care physician of this admission to [facility]. - Continue your current medications per discharge instructions. - Please watch for these problems: Fever, Chills, Nausea, Vomiting, Shortness of Breath, Productive Cough, Chest Pain/Discomfort, Abdominal Pain, Active Bleeding or Bloody urine/stool. Medications at Discharge Discharge Medications: Stop taking the following medications: Atorvastatin Calcium (Atorvastatin Calcium) 40 MG TABLET ORAL Every night Continue taking these medications: Acyclovir (Acyclovir) 800 MG TABLET 1 Tablet ORAL DAILY Comments: did not administer Amlodipine Besylate (Amlodipine Besylate) 5 MG TABLET 1 Tablet ORAL DAILY Qty = 90 Comments: Last Taken: 03/16/16 Time: 8:30AM Levothyroxine Sodium (Levothyroxine Sodium) 200 MCG TABLET 1 Tablet ORAL DAILY BEFORE BREAKFAST Comments: Last Taken: 1/15/17 Time: 5:30AM Omeprazole (Omeprazole) 40 MG CAPSULE.DR 1 Capsule ORAL DAILY Comments: Last Taken: 03/16/17 Time: 5:30AM Meclizine HCl (Meclizine HCl) 25 MG TABLET 1 Tablet ORAL THREE TIMES A DAY NEEDED as needed for VERTIGO Comments: DID NOT ADMINISTER Albuterol Sulfate (Proair Hfa) 90 MCG HFA.AER.AD 2 Puff Inhale through mouth EVERY 4-6 HOURS NEEDED as needed for SHORTNESS OF BREATH Comments: DID NOT ADMINISTER Diazepam (Diazepam) 5 MG TABLET 1 Tablet ORAL 2 x Daily as needed as needed for UNKNOWN Comments: DID NOT ADMINISTER IN HOSPITAL Budesonide/Formoterol Fumarate (Symbicort 160-4.5 Mcg Inhaler) 160 MCG-4.5 MCG/ ACTUATION HFA.AER.AD 2 Puff Inhale through mouth TWICE DAILY as needed for SHORTNESS OF BREATH Comments: DID NOT ADMINISTER IN HOSPITAL Aspirin (Aspirin*) 81 MG TAB.CHEW 1 Tablet ORAL DAILY Comments: DID NOT ADMINISTER IN HOSPITAL Copies To: Charbel SOTO,Benigno Dunham Attending MD Review Statement Documenting Attending: Radha SOTO,Ellie Other Findings: Patient walking tran way today with no complaints. He had his breakfast today. Patient vital stable. afebrile. Patient can be discharged in stbale condition. Follow up with PCP at discharge within few days.
--- NOTE | 2017-03-16 13:46 | PN- Student ---
Subjective Subjective: Mr. David Neal is a 71 year old male w/ a PMHx of Vertigo, HTN, HLD, Hypothyroidism, Diverticulitis, & Asthma. He presented to the ER w/ CC: Dizzyness, nausea, vommiting, & non-bloody watery diarrhea. The patient began experiencing symptoms on the night of March 12 upon returning home from dinner after having what he described as a fairly greasy and heavy meal of Veal parmisean and pasta. He experienced vertigo & generalized abdominal discomfort throughout the night, followed by episodes of N/V after having oatmeal and orange juice for break fastthe next morning. The patient tried drinking some gatorade but was unable to keep down any food or liquids, the nausea and vomitting was followed by episodes of loose watery and non bloody diarrhea, along with persistent vertigo throughout the day. The patient had > 10 episodes of this N/V/D resulting in him feeling very sick and weak, and prompting him to come in to the ER on the afternoon of March 13. Patient did not complain of any abdominal pain. Mr. Neal revealed that he always feels sick/nauseated after eating greasy/fatty foods & these episodes are always preceeded & acommpanied by vertigo but don't usually get this bad, he states that drinking things like orage juice to "cut the grease" in his mouth have helped in the past. He denied any PMHx of pancreatitis or gallbladder issues. Patient also stated that his had been in the hospital with a similar illness about a week or two ago and was diagnosed at the time with a viral Gastroenteritis which has since resolved. Patient had elevated Amylase/lipase & lactic acidosis at the time of admission; an abdominal/pelvic CT was ordered and found to be unremarkable, Influenza A & B were olso ruled out after a rapid smear test. Symptoms had improved by the time the patient was examined in the ER & he was able to drink apple juice w/ no further N/V/D at the time. Patient was admitted and started on Ondansetron, DVT Prophylaxis, & normal diet. He had two episodes of N/V after lunch the following day, Mar 14, and his diet was switched to full liquid. Diet was well tollerated over the next day, patient was able to have chicken noodle soup for dinner last night with no more episodes of N/V/D. Patient was switched to full solid diet for breakfast & stated that he was feeling great and did not have any pain or episodes of N/V/D throughout the night, his only concern was that he had not had any bowel movements either and stated that he had been very gassy and everytime he tried to go to the bathroom he just passed gas. Patient denied chest pain, SOB, palpations, urinary abnormalities, or any other skin, or neurological symptoms, although he did indicate some mild lower back pain which is chronic. Objective Objective: Vital Signs Date Time Temp Pulse Resp B/P B/P Pulse O2 O2 Flow FiO2 Mean Ox Delivery Rate 03/16 0834 59 122/76 03/16 0630 98.0 59 20 122/76 96 Room Air 03/15 2244 97.8 60 20 102/60 97 Room Air 03/15 1546 97.9 66 20 110/70 97 Intake & Output 03/16 1600 03/16 0800 03/16 0000 Intake Total 400 480 Output Total Balance 400 480 Intake, Oral 400 480 General: Mr. Neal was seated comfortably on his bead, eating breakfast, with happy facial expression and positive mood. He was respnsive, alert, oriented, & did not appear to be in any acute distress. Cardiac: Cardiac auscultation reeveals regular rate/rhythm, normal S1 & S1, with no palpations, murmurs, or thrills. Pulmonary: Lungs are clear to auscultation bilaterally, with no audible wheezes, rales, or rhonchi. Abdominal: Auscultation reveals normal bowel sounds w/ no audible aortic or renal bruits. Abdomen is soft on palpation with mild sharp tenderness felt on deep paplation of the right & left upper quadrents, most likely d/t gas. No hepatomegaly, splenomegaly, or abdominal distension observed. Extremeties: Radial & tibialis posterior pulses 2+ bilaterally on palation, no signs of leg edema or vericose veins were observed. Current Medications Sig/Mary Ann Start time Last Medication Dose Route Stop Time Status Admin Amlodipine Besylate 5 MG DAILY 03/14 1000 DCD 03/16 PO 0834 Diazepam 5 MG BID PRN 03/14 1000 DCD PO Enoxaparin Sodium 40 MG DAILY 03/14 1000 DCD 03/16 SC 0834 Levothyroxine Sodium 0.2 MG DAILY AC 03/14 0700 DCD 03/16 PO 0526 Omeprazole 40 MG DAILY AC 03/14 0700 DCD 03/16 PO 0526 Meclizine HCl 25 MG DAILY PRN 03/14 0645 DCD PO Acetaminophen 650 MG Q6P PRN 03/13 2099 DCD PO Acetaminophen 1,000 MG Q6P PRN 03/13 2099 DCD IV Ondansetron HCl 4 MG Q8P PRN 03/13 2099 DCD 03/14 IV 1848 Results Results: Laboratory Tests 03/16/17 0810: Anion Gap 11, Estimated GFR > 60, BUN/Creatinine Ratio 15.7, CBC w Diff NO MAN DIFF REQ, RBC 4.34 L, MCV 88.2, MCH 29.7, RDW 13.5, MPV 8.6, Gran % 59.4, Lymphocytes % 23.9, Monocytes % 10.4 H, Eosinophils % 6.0 H, Basophils % 0.3, Absolute Granulocytes 4.1, Absolute Lymphocytes 1.6, Absolute Monocytes 0.7 H, Absolute Eosinophils 0.4, Absolute Basophils 0, PUBS MCHC 33.7 03/15/17 0820: Anion Gap 13, Estimated GFR > 60, BUN/Creatinine Ratio 14.3, CBC w Diff NO MAN DIFF REQ, RBC 4.22 L, MCV 87.9, MCH 29.8, RDW 13.4, MPV 8.5, Gran % 65.3, Lymphocytes % 17.0 L, Monocytes % 12.5 H, Eosinophils % 5.0, Basophils % 0.2, Absolute Granulocytes 4.4, Absolute Lymphocytes 1.1 L, Absolute Monocytes 0.8 H, Absolute Eosinophils 0.3, Absolute Basophils 0, PUBS MCHC 33.9 03/14/17 1245: Lactic Acid 1.7, CBC w Diff NO MAN DIFF REQ, RBC 4.63 L, MCV 88.3, MCH 29.1, RDW 13.8, MPV 9.1, Gran % 68.6, Lymphocytes % 14.5 L, Monocytes % 11.2 H, Eosinophils % 5.5 H, Basophils % 0.2, Absolute Granulocytes 5.0, Absolute Lymphocytes 1.1 L, Absolute Monocytes 0.8 H, Absolute Eosinophils 0.4, Absolute Basophils 0, PUBS MCHC 33.0 03/14/17 0853: Anion Gap 18 H, Estimated GFR > 60, BUN/Creatinine Ratio 20.0, Amylase 70, Lipase 37 03/13/17 1505: Anion Gap 16, Estimated GFR > 60, BUN/Creatinine Ratio 30.0 H, Glucose 126 H, Lactic Acid 2.6 H, Calcium 9.8, Total Bilirubin 0.7, AST 21, ALT 32, Alkaline Phosphatase 73, Troponin I < 0.01, Total Protein 7.3, Albumin 4.5, Globulin 2.8, Albumin/Globulin Ratio 1.6, Amylase 200 H, Lipase 529 H, CBC w Diff NO MAN DIFF REQ, RBC 5.11, MCV 88.0, MCH 29.6, RDW 13.8, MPV 8.8, Gran % 79.6 H, Lymphocytes % 7.8 L, Monocytes % 7.7, Eosinophils % 4.7, Basophils % 0.2, Absolute Granulocytes 7.3 H, Absolute Lymphocytes 0.7 L, Absolute Monocytes 0.7 H, Absolute Eosinophils 0.4, Absolute Basophils 0, [facility] 33.6 Microbiology 03/13 1505 NASOPHARYN: Influenza Virus A & B Rapid Smear - COMP Assessment/Plan Assessment: Mr. David Neal is a 71 year old male w/ a PMHx of Vertigo, HTN, HLD, Hypothyroidism, Diverticulitis, & Asthma. He presented to the ER w/ CC: Dizzyness, nausea, vommiting, & non-bloody watery diarrhea that began on the morning of March 13 after breakfast, and continued throughout the day, resulting in weakness and generalized malaise, prompting the patient to come into the ER that same evening. Elevated Amylase/lipase at the time of presentation prompted abdominal CT, which was unremarkable. Pt was admitted & started on Ondanesetron for the N/V, & is currently on HD4. On PE, pt has mild tenderness in LUQ & RUQ, but was doing alot better & only complained of increased gas and lack of bowel movement this morning, most likely d/t lack of solids in his diet. Patient did not appear dehydrated & remains afebrile. Clinical Picture resembles viral gastroenteritis, most likely transmitted to the patient from his , who had a case recently. Patient's condition has improved over the course of hospitalization, he has no further Sx's of N/V/D or vertigo, is currently stable, & awaiting discharge. Plan: - Patients advanced to regular diet w/ no further N/V/D: Patient is stable & awaiting discharge - Lactic Acidosis, & elevated Amylase/Lipase: both resolved, contiue to monitor - Chronic conditions (Asthma, HTN, HLD, etc.): Continue at home medications/ management - Constipation & Gas: Continue normal diet, Increase fiber, monitor at home - Vertigo: continue meclizine PRN - Follow up with PCP at discharge
== END 2017-03-16 13:50 | DRG 392 ==
LOC: ERH 14:03 → ERHI 19:43 → ENRESERV 20:39 → ENTRNSPT 21:07 → EDTRNSPT 21:25 → 2NA 21:28 → CMPTRNSPT 21:57 → 2NA 03-15 11:12 → ENPENDDIS 03-16 13:12 → ENTRNSPT 03-16 13:28 → CMPTRNSPT 03-16 13:41 → 2NA 03-16 13:50
PROVIDERS: Physician Assistant Medical; Student in an Organized Health Care Education/Training Program
DX: A08.4 Viral intestinal infection, unspecified (principal); E87.2 Acidosis; E78.5 Hyperlipidemia, unspecified; I10 Essential (primary) hypertension; J45.909 Unspecified asthma, uncomplicated; E03.9 Hypothyroidism, unspecified
CPT/HCPCS: 2NAP; 36415; 74176; 82436; 87804; 87804-59; 93005; 93010; J0131; J1650; J2405